=== PATIENT | female | born 1990 | race Caucasian/White ===

== ENCOUNTER 2019-03-27 11:26 | Emergency (ER) | payer OTHER ==
[~2019-03-27] VITALS: Ht 160 cm; Wt 53.5 kg
[~2019-03-27 11:26] MED LIST: ADVAIRDISKUS; FLONASE
[2019-03-27] MEDS ORDERED: LYRICA 50 MG50 MG PO (11:57)
[2019-03-27] MEDS ORDERED: ROBAXIN 750 MG750 MG PO (12:02)
[2019-03-27 12:18] VITALS: BP 120/80
== END 2019-03-27 12:19 | disposition home or self-care (01) ==
LOC: M.ERS 11:26
DX: S16.1XXA Strain of muscle, fascia and tendon at neck level, initial encounter (principal); S39.012A Strain of muscle, fascia and tendon of lower back, initial encounter; S56.311A Strain of extensor or abductor muscles, fascia and tendons of right thumb at forearm level, initial encounter; V89.2XXA Person injured in unspecified motor-vehicle accident, traffic, initial encounter; Y93.89 Activity, other specified; Y92.89 Other specified places as the place of occurrence of the external cause; Y99.8 Other external cause status

== ENCOUNTER → 2021-07-26 | Outpatient (CLI) | payer OTHER ==
[~2021-07-26] MED LIST changes: +LYRICA 50 MG50 MG PO; +ROBAXIN 750 MG750 MG PO
== END ==
LOC: M.ULTRA 14:42
PROVIDERS: ATTEND Family Medicine
DX: M79.604 Pain in right leg (principal)